=== PATIENT | female | born 1960 | race Caucasian/White ===

== ENCOUNTER 2019-11-24 14:48 | Outpatient (CLI) | payer OTHER, SELFPAY ==
--- NOTE | ~2019-11-24 | MM_ITS ---
EXAMINATION: MM screening [facility] BI w gabbi HISTORY: Screening mammogram TECHNIQUE: Craniocaudal and mediolateral oblique 3-D tomosynthesis images were obtained and synthetic 2-D images were generated. CAD analysis was submitted and interpreted. COMPARISON: 10/24/2018, 10/16/2017, 10/09/2016 BREAST PARENCHYMAL COMPOSITION: There are scattered areas of fibroglandular density. FINDINGS: Scattered benign-appearing calcifications are present. There is no evidence of suspicious m ass, calcification, or architectural distortion to suggest malignancy in either breast. There has bee n no suspicious interval change. IMPRESSION: 1. No mammographic evidence of malignancy. 2. Recommend routine screening mammography in one year. BI-RADS Category 2: Benign finding(s). Reviewed, dictated and finalized at location A.
== END 2019-11-24 14:49 | disposition home or self-care (01) ==
LOC: ANHIMG 14:52
PROVIDERS: PCP Family Medicine Adolescent Medicine; Visit Provider Nurse Practitioner Family
DX: Z12.31 Encounter for screening mammogram for malignant neoplasm of breast (principal)
CPT/HCPCS: 77063; 77067

== ENCOUNTER 2020-11-29 14:29 | Outpatient (CLI) | payer OTHER, SELFPAY ==
--- NOTE | ~2020-11-29 | MM_ITS ---
EXAMINATION: MM screening lamin BI w gabbi HISTORY: Screening mammogram TECHNIQUE: Craniocaudal and mediolateral oblique 3-D tomosynthesis images were obtained and synthetic 2-D images were generated. CAD analysis was submitted and interpreted. COMPARISON: 11/24/2019, 10/24/2018, 10/17/2007 bilateral digital screening mammogram examinations BREAST PARENCHYMAL COMPOSITION: There are scattered areas of fibroglandular density. FINDINGS: Occasional benign calcifications. There is no evidence of suspicious mass, calcification, o r architectural distortion to suggest malignancy in either breast. There has been no suspicious inter devon change. IMPRESSION: 1. No mammographic evidence of malignancy. 2. Recommend routine screening mammography in one year. BI-RADS Category 1: Negative Reviewed, dictated and finalized at location A.
== END 2020-11-29 14:30 | disposition home or self-care (01) ==
LOC: ANHIMG 14:33
PROVIDERS: PCP Family Medicine Adolescent Medicine; Visit Provider Obstetrics & Gynecology
DX: Z12.31 Encounter for screening mammogram for malignant neoplasm of breast (principal)
CPT/HCPCS: 77063; 77067

== ENCOUNTER 2021-06-13 10:39 | Emergency (ER) | payer OTHER, SELFPAY ==
[2021-06-13 10:48] VITALS: BP 135/72; PULSE 86; RESP 16; TEMP 37.2; O2SAT 100
--- NOTE | 2021-06-13 11:10 | ED.ABDPAIN ---
HPI - Abdominal Pain General Chief Complaint: Abdominal Pain Stated Complaint: Lower abdominal Pain Time Seen by Provider: 06/13/21 11:11 Source: patient and RN notes reviewed Mode of arrival: ambulatory Limitations: no limitations History of Present Illness HPI narrative: 61-year-old female presents to the [facility] with complaints of left lower abdominal pain for the last 1-1/2 days. Patient states she had a normal bowel movement today. Denies any nausea vomiting or diarrhea. MD elicited complaint: abdominal pain (Left lower) Related Data Home Medications Medication Instructions Recorded Confirmed atorvastatin 10 mg PO DAILY 06/13/21 06/13/21 levothyroxine [Synthroid] 88 mcg PO DAILY 06/13/21 06/13/21 Allergies Allergy/AdvReac Type Severity Reaction Status Date / Time Penicillins Allergy Unknown Nausea and Verified 06/13/21 11:27 Vomiting Sulfa (Sulfonamide Allergy Unknown vomiting Verified 06/13/21 11:27 Antibiotics) sulfamerazine Allergy Unknown Nausea and Verified 06/13/21 11:27 Vomiting sulfanilamide Allergy Unknown Nausea and Verified 06/13/21 11:27 Vomiting Review of Systems Review of Systems: All systems reviewed & are unremarkable except as noted in HPI and below Constitutional: Constitutional: Reports no additional constitutional complaints, Denies chills and Denies fever(s) Eyes: Eyes: Reports no additional eye complaints ENT: Reports system reviewed and no additional complaints, except as documented Cardiovascular: Cardiovascular: Reports no additional cardiovascular complaints and Denies chest pain Respiratory: Respiratory: Reports no additional respiratory complaints, Denies cough and Denies dyspnea Gastrointestinal: Gastrointestinal: Reports abdominal pain (Left lower, suprapubic), Denies constipation, Denies diarrhea, Denies nausea and Denies vomiting Genitourinary: Genitourinary: Reports no additional female genitourinary complaints Musculoskeletal: Musculoskeletal: Reports no additional musculoskeletal complaints Integumentary/Breasts: Skin/Breast: Reports system reviewed and no additional complaints, except as docu Neurologic: Reports system reviewed and no additional complaints, except as documented Psychiatric: Psychiatric: Reports no additional psychiatric complaints Allergic/Immunologic: Allergic/Immunologic: Reports no additional allergic/immunologic complaints [facility] Past Medical History Medical History (Updated 06/13/21 @ 11:29 by Hiral Ribeiro) High cholesterol Thyroid disorder Surgical History Surgical History (Updated 06/13/21 @ 11:19 by Hiral Ribeiro) No significant past surgical history Family History Family History (Updated 02/05/14 @ 07:13 by DOCTOR UNKNOWN) Father Family history of coronary artery disease Mother Acute myocardial infarction Other Hypertension Social History Social History Alcohol intake: current Comments At the time of my signature, I reviewed and agree with the nursing past medical, surgical, social, and family history. There is no relevant family history pertinent to the patient complaint. Exam Const: General: alert and ill appearing acutely (Pain) Nutritional Appearance: well nourished Orientation/consciousness: patient oriented x3 Limitations: no limitations HENMT: Head: normal to inspection Ears: external ears normal, TM's normal bilaterally and EAC's normal Eyes: Conjunctivae: conjunctivae normal Pupils: Equal, round and reactive pupils present Neck: Neck: normal visual inspection, no lymphadenopathy and no meningeal signs Chest: Chest palpation & inspection: normal inspection of the chest Resp: Effort & Inspection: normal respiratory effort and no use of accessory muscles Auscultation: clear to auscultation bilaterally, no crackles, no rales, no rhonchi and no wheezes Cardio: Rate: regular rate Rhythm: regular rhythm GI: GI Palp: Yes Soft to palpation, Yes Tenderness to palpat
== END 2021-06-13 11:20 | disposition short-term general hospital (02) ==
PROVIDERS: PCP Family Medicine Adolescent Medicine
DX: R10.32 Left lower quadrant pain (principal); E78.00 Pure hypercholesterolemia, unspecified; E07.9 Disorder of thyroid, unspecified
CPT/HCPCS: 99212; G0463

== ENCOUNTER 2021-06-13 11:40 | Emergency (ER) | payer OTHER, SELFPAY ==
--- NOTE | ~2021-06-13 | CT_ITS ---
EXAMINATION: CT abdomen pelvis w con EXAM DATE: 06/13/2021 18:42 INDICATION: LLQ abd pain. TECHNIQUE: Spiral CT of the abdomen and pelvis was performed following intravenous injection of 100 m L Omnipaque 350. Axial, coronal and sagittal images of the abdomen and pelvis were reviewed. The do se-length product (DLP) for this examination was 238.20 mGy-cm. The exposure was tailored according to patient size (auto mA exposure control), and iterative reconstruction (ASIR) was used as additiona l dose reduction technique. There is no prior study for comparison. FINDINGS: There is left liver lobe hypodense lesion with probable peripheral nodular enhancement iden tified, likely a hemangioma measuring 2.5 cm. There is a right upper lobe similar appearing lesion me asuring 1 cm. Spleen, pancreas, adrenal glands are unremarkable. Gallbladder is unremarkable. No bi liary obstruction. Portal and splenic veins are patent. Kidneys enhance symmetrically. There is no hydronephrosis. The uterus is retroverted and morphologically normal. Enlarged left ovarian veins, near the adnexa measuring up to 1.4 cm in diameter could indicate pelvic congestion syndrome. The b ladder is distended but otherwise unremarkable. There is no retroperitoneal or pelvic lymphadenopath y. There is mild scattered arteriosclerotic disease. There is moderate sigmoid diverticulosis. There is large amount of inflammation surrounding the desce nding/sigmoid colonic junction, with colonic wall edema. Although findings above are most consistent with acute diverticulitis, rarely inflammatory cancer can have a similar appearance. Therefore recomm end treating patient for acute diverticulitis and then obtaining a 2-4 week followup abdomen pelvis C T. Alternatively, if patient has not had recent colonoscopy, followup colonoscopy could be considered . Normal appendix. The stomach and small bowel are unremarkable. There is expected amount of colonic s tool. No free intraperitoneal gas. The heart is normal in size. There are no pericardial or pleu ral effusions. The lung bases are unremarkable. There are no osteoblastic or osteolytic lesions zeferino ntified. IMPRESSION: 1. Descending/sigmoid colonic wall thickening, edema, adjacent inflammation most likely uncomplicate d diverticulitis. Inflammatory cancer not excludable. 2. Dilated left ovarian vein; possible pelvic congestion syndrome. 3. Two liver lesions consistent with hemangiomata. Reviewed, dictated and finalized at location A. DRY SORTER IMPRESSION: 1. Descending/sigmoid colonic wall thickening, edema, adjacent inflammation mo st likely uncomplicated diverticulitis. Inflammatory cancer not excludable. 2. Dilated left ovarian vein; possible pelvic congestion syndrome. 3. Two liver lesions consistent with hemangiomata.
[2021-06-13 11:56] VITALS: BP 127/69; PULSE 86; RESP 15; TEMP 36.6; O2SAT 100
[2021-06-13 13:32] VITALS: BP 133/81; PULSE 81; RESP 18; TEMP 36.4; O2SAT 99
[2021-06-13 16:20] VITALS: BP 127/79; PULSE 81; RESP 18; TEMP 36.3; O2SAT 100
[2021-06-13 17:57] VITALS: BP 156/77; PULSE 81; RESP 18; O2SAT 100
--- NOTE | 2021-06-13 18:02 | ED.ABDPAIN ---
HPI - Abdominal Pain General Chief Complaint: Abdominal Pain Stated Complaint: abd pain Time Seen by Provider: 06/13/21 17:47 Source: patient Mode of arrival: ambulatory Limitations: no limitations History of Present Illness HPI narrative: This is a 61-year-old female that presents to the emergency department for left lower quadrant abdominal pain. Present over the last couple of days. The pain has been constant in nature. Associated with some loose stools. Denies fever, vomiting, dysuria, hematuria, or hematochezia. Related Data Home Medications Medication Instructions Recorded Confirmed atorvastatin 10 mg PO DAILY 06/13/21 06/13/21 levothyroxine [Synthroid] 88 mcg PO DAILY 06/13/21 06/13/21 Allergies Allergy/AdvReac Type Severity Reaction Status Date / Time Penicillins Allergy Unknown Nausea and Verified 06/13/21 11:56 Vomiting Sulfa (Sulfonamide Allergy Unknown vomiting Verified 06/13/21 11:56 Antibiotics) sulfamerazine Allergy Unknown Nausea and Verified 06/13/21 11:56 Vomiting sulfanilamide Allergy Unknown Nausea and Verified 06/13/21 11:56 Vomiting Review of Systems Review of Systems: CONSTITUTIONAL: Denies fever GASTROINTESTINAL: Reports abdominal pain and diarrhea. Denies nausea, vomiting GENITOURINARY: Denies dysuria or hematuria. All systems reviewed & are unremarkable except as noted in HPI and below PMFSH Past Medical History Medical History (Updated 06/13/21 @ 19:38 by Angie Farris PA-C) High cholesterol Thyroid disorder Surgical History Surgical History (Updated 06/13/21 @ 11:19 by Hiral Ribeiro) No significant past surgical history Family History Family History (Updated 02/05/14 @ 07:13 by DOCTOR UNKNOWN) Father Family history of coronary artery disease Mother Acute myocardial infarction Other Hypertension Social History Social History Alcohol intake: current Exam Narrative: GENERAL: Well-appearing, well-nourished, and in no acute distress. HEAD: Normocephalic, atraumatic. EYES: EOMI. CHEST: Clear to auscultation. No respiratory distress. No wheezes rales or rhonchi HEART: Regular rate and rhythm. No murmur heard. Normal peripheral pulses. ABDOMEN: Soft, nondistended, normal active bowel sounds. Tender to palpation in the left lower quadrant, without guarding. No CVA tenderness EXTREMITIES: Normal range of motion. No edema. SKIN: Warm, dry, no rash. NEURO: No focal deficits. Alert and oriented x3. PSYCH: Normal mood and affect Course Consultations Consultation #1: Spoke with Dr. Vega about patient and work-up who will follow-up in clinic. Date: 06/13/21 Time: 19:00 Vital Signs Vital signs: Vital Signs Temperature 97.8 F 06/13/21 11:56 Pulse Rate 86 06/13/21 11:56 Respiratory Rate 15 06/13/21 11:56 Blood Pressure 127/69 06/13/21 11:56 Pulse Oximetry 100 06/13/21 11:56 Temperature 97.3 F L 06/13/21 16:20 Pulse Rate 82 06/13/21 18:58 Respiratory Rate 18 06/13/21 18:58 Blood Pressure 130/82 06/13/21 18:58 Pulse Oximetry 100 06/13/21 18:58 MDM - Abdominal Pain MDM Narrative Medical decision making narrative: Patient presents emergency department for left lower quadrant abdominal pain present over the last couple of days. She is afebrile and nontoxic-appearing. Vitals are stable. CBC with leukocytosis to 17. Metabolic panel with some evidence of dehydration. Patient hydrated with IV fluids in the ED. Lipase is normal. UA without evidence of infection. CT scan abdomen pelvis shows descending/sigmoid colonic wall thickening, edema, induration inflammation most likely uncomplicated diverticulitis. Inflammatory cancer not excludable, recommend repeat imaging in a couple of weeks to ensure resolution. Patient was updated on case findings. Given option of admission for further management or discharge home with oral antibiotics. Patient prefers to be discharged home. Spoke with Dr. Friend
[2021-06-13 18:16] LABS: Basophils Absolute Auto 0.1 K/mm3 (0.0-0.1); Basophils Percent Auto 0.3 % (0.2-1.2); Eosinophils Percent Auto 0.2 % (0-4.4); Hematocrit 42.7 % (37.0-47.0); Hemoglobin 14.5 g/dL (12.0-15.0); Immature Granulocyte Absolute 0.07 K/mm3 (0.00-0.031); Immature Granulocyte Percent A 0.4 % (0-0.5); Lymphocytes Absolute Auto 2.07 K/mm3 (0.9-3.2); Lymphocytes Percent Auto 12.1 % (18.3-44.2); Mean Corpuscular Hemoglobin 31.6 pg (26-34); Monocytes Absolute Auto 1.4 K/mm3 (0.1-0.6); Monocytes Percent Auto 8.2 % (2.6-8.5); Neutrophils Absolute Auto 13.4 K/mm3 (1.3-6.7); Neutrophils Percent Auto 78.8 % (45.5-73.1); Platelet Count Result 287 k/mm3 (150-375); Red Blood Count 4.59 M/mm3 (4.2-5.4); Red Cell Distribution Width 12.7 % (11.5-14.5)
[2021-06-13] MEDS: MORPHINE SULFATE (*CRX) 2 MG/ML INJ IV PUSH (18:22)
[2021-06-13] MEDS: ONDANSETRON INJ 4 MG/2 ML VIAL IV PUSH (18:22)
[2021-06-13 18:23] LABS: Add Urine Microscopic? YES; Appearance Urine Clear (Clear); Bilirubin Urine Negative (Negative); Blood Urine 1+ (Negative); Color Urine Yellow (Yellow); Glucose Urine UA Negative (Negative); Ketones Urine 1+ mg/dL (Negative); Leukocyte Esterase Ur Negative LEU/UL (Negative); Mucus Urine Rare /lpf; Nitrate Urine Negative (Negative); Protein Urine Negative (Negative); Specific Grav Ur 1.011 (1.001-1.035); Squamous Epithelial Cell Urine Rare /hpf (Few); Urobilinogen Urine Negative mg/dL (<2.0); WBC Urine 0-3 /hpf
[2021-06-13 18:25] LABS: Alanine Aminotransferase 20 U/L (4-35); Albumin Level 4.6 g/dL (3.5-5.1); Alkaline Phosphatase 81 U/L (38-126); Anion Gap 9 mmol/L (8-16); Aspartate Amino Transferase 30 U/L (14-36); Bilirubin,Total 0.7 mg/dL (0.2-1.3); Blood Urea Nitrogen 5 mg/dL (7-17); Calcium 9.2 mg/dL (8.4-10.2); Carbon Dioxide 24 mmol/L (22-30); Chloride 97 mmol/L (98-107); Estimated CRCL calculation 65 ml/min; Estimated Glomerular Filt Rate > 60; Glucose 110 mg/dL (65-110); Lipase 20 U/L (23-300); Potassium 3.9 mmol/L (3.4-5.0); Sodium 130 mmol/L (137-145)
[2021-06-13] MEDS: SODIUM CHLORIDE 0.9% IV 1,000 ML 999 ML IV CONT (18:56)
[2021-06-13 18:58] VITALS: BP 130/82; PULSE 82; RESP 18; O2SAT 100
--- NOTE | 2021-06-13 19:26 | PC.NURSE ---
assumed care of pt
[2021-06-13] MEDS: CIPROFLOXACIN 500 MG TAB PO (19:30)
[2021-06-13] MEDS: metroNIDAZOLE 250 MG TABLET 500 MG PO (19:31)
[2021-06-13 20:00] VITALS: BP 156/79; PULSE 73; RESP 18; O2SAT 100
== END 2021-06-13 20:00 | disposition home or self-care (01) ==
PROVIDERS: Physician Assistant; Emergency Provider Emergency Medicine; PCP Family Medicine Adolescent Medicine
DX: K57.32 Diverticulitis of large intestine without perforation or abscess without bleeding (principal); E78.00 Pure hypercholesterolemia, unspecified; E07.9 Disorder of thyroid, unspecified; K76.9 Liver disease, unspecified
CPT/HCPCS: 36415; 74177; 80053; 81001; 83690; 85025; 96361; 96365; 96375; 99284; A9270; J0131; J2270; J2405; J7030; Q9967

== ENCOUNTER → 2022-02-01 08:34 | Outpatient (CLI) | payer OTHER, SELFPAY ==
--- NOTE | ~2022-02-01 | DEXA_ITS ---
Bone Density Report Name: BANDAR HANSEN Age: 61 Sex: Female Ethnicity: White Date of : 1960 Indication: osteopenia; monitoring treatment; height loss; postmenopausal Referring Provider: Rachell Bowman Study: Bone densitometry was performed. Exam Date: February 01, 2022 Accession number: [id number] Bone Density: Region BMD T-score Z-score Classification AP Spine (L1-L4) 0.881 -1.5 0.2 Osteopenia Femoral Neck (Left) 0.624 -2.0 -0.6 Osteopenia Total Hip (Left) 0.781 -1.3 -0.2 Osteopenia Femoral Neck (Right) 0.646 -1.8 -0.4 Osteopenia Total Hip (Right) 0.768 -1.4 -0.3 Osteopenia Total Hip Mean 0.775 -1.4 -0.3 Osteopenia World Health Organization criteria for BMD impression classify patients as: Normal (T-score at or above -1.0), Osteopenia (T-score between -1.0 and -2.5), or Osteoporosis (T-score at or below -2.5). 10-year Fracture Risk: FRAX not reported because: Treated for osteoporosis Previous Exams: Region Exam Age BMD T-score BMD Change BMD Change Date g/cm2 vs Baseline vs Previous AP Spine(L1-L4) 02/01/2022 61 0.881 -1.5 0.000 0.000 05/16/2019 59 0.881 -1.5 Total Hip(Left) 02/01/2022 61 0.781 -1.3 -0.055* -0.055* 05/16/2019 59 0.835 -0.9 Total Hip(Right) 02/01/2022 61 0.768 -1.4 -0.048* -0.048* 05/16/2019 59 0.816 -1.0 *Denotes significance at 95% confidence level, LSC for AP Spine = 0.022 g/cm2, LSC for Total Hip = 0.027 g/cm2 Clinical Information Provided by Patient: Is being treated for osteoporosis Has used the following medications: Prolia (i.e. denosumab), Vitamin D, Calcium Patient maximum height was 61.75 Menopause Age: 50 Drinks caffeinated beverages Onset of menses at age 12 Number of children 4 Impression: The patient has low bone mass, based on the Left Femoral Neck T-score. The BMD for the Total Hip(Left) decreased, changing by -0.055 since the last DXA exam. The BMD for the Total Hip(Right) decreased, changing by -0.048 since the last DXA exam. Discussion: SIGNIFICANT BONE LOSS OBSERVED. Adherence to therapy (including calcium and vitamin D intake) should be assessed. If compliance is not a factor, review management and exclusion of secondary causes of bone loss. It is important to ask patients whether they are taking their medications and to encourage continued and appropriate compliance with their osteoporosis therapies to reduce fracture risk. It is also
--- NOTE | ~2022-02-01 | MM_ITS ---
EXAMINATION: MM screening lamin BI w gabbi HISTORY: Screening TECHNIQUE: Craniocaudal and mediolateral oblique 3-D tomosynthesis images were obtained and synthetic 2-D images were generated. CAD analysis was submitted and interpreted. COMPARISON: Comparison to multiple prior studies sequentially, with oldest reviewed study dated 09/26. BREAST PARENCHYMAL COMPOSITION: There are scattered areas of fibroglandular density. FINDINGS: There is no evidence of suspicious mass, calcification, or architectural distortion to sugg est malignancy in either breast. There has been no suspicious interval change. IMPRESSION: 1. No mammographic evidence of malignancy. 2. Recommend routine screening mammography in one year. BI-RADS Category 1: Negative Reviewed, dictated and finalized at location A.
== END ==
PROVIDERS: PCP Family Medicine Adolescent Medicine; Visit Provider Obstetrics & Gynecology
DX: Z12.31 Encounter for screening mammogram for malignant neoplasm of breast (principal); M81.0 Age-related osteoporosis without current pathological fracture; M85.88 Other specified disorders of bone density and structure, other site; M85.852 Other specified disorders of bone density and structure, left thigh; M85.851 Other specified disorders of bone density and structure, right thigh
CPT/HCPCS: 77063; 77067; 77080

== ENCOUNTER 2022-04-22 22:31 | Emergency (ER) | payer OTHER, SELFPAY ==
--- NOTE | ~2022-04-22 | CT_ITS ---
EXAMINATION: CT abdomen pelvis w con INDICATION: Lower abdominal pain TECHNIQUE: Computed tomographic images of the abdomen and pelvis were obtained after the administrati on of 100 cc of Omnipaque 350 intravenous contrast. The dose-length product (DLP) was 318.08 mGy-cm. Automated exposure control and iterative reconstruction technique were employed. COMPARISON: 06/13/2021 FINDINGS: There is a stable 4 mm nodule of the left lower lobe. The heart size is normal. There is a 2.1 cm hemangioma of the left hepatic lobe. A stable subcapsular hemangioma is also noted in the righ t hepatic lobe. The spleen, pancreas, gallbladder, and adrenal glands are normal. The kidneys are unr emarkable. No pathologically enlarged abdominal or pelvic lymph nodes are identified. There is no jeniffer e intraperitoneal gas or evidence of bowel obstruction. There is diverticulosis of the colon. There i s wall thickening of the sigmoid colon with adjacent edematous stranding of the perisigmoid fat. A sm all volume of ascites is present in the pelvis. No rim-enhancing fluid collection is identified. Ther e is mild lumbar spondylosis. A fat-containing umbilical hernia is noted. IMPRESSION: 1. Acute, uncomplicated sigmoid diverticulitis. Reviewed, dictated and finalized at location A. [facility]
[2022-04-22 22:32] VITALS: BP 140/69; PULSE 83; RESP 20; TEMP 36.4; O2SAT 100
[2022-04-22 22:50] LABS: Basophils Percent Auto 0.3 % (0.2-1.2); Eosinophils Absolute Auto 0.2 K/mm3 (0-0.3); Eosinophils Percent Auto 1.3 % (0-4.4); Hemoglobin 13.9 g/dL (12.0-15.0); Immature Granulocyte Absolute 0.04 K/mm3 (0.00-0.031); Immature Granulocyte Percent A 0.4 % (0-0.5); Lymphocytes Absolute Auto 2.09 K/mm3 (0.9-3.2); Lymphocytes Percent Auto 18.5 % (18.3-44.2); Mean Corpuscular HGB Conc 33.9 g/dl (32-36); Mean Corpuscular Hemoglobin 29.4 pg (26-34); Mean Corpuscular Volume 86.9 fl (80-100); Mean Platelet Volume 8.8 fl (7.4-10.4); Monocytes Absolute Auto 0.9 K/mm3 (0.1-0.6); Monocytes Percent Auto 8.2 % (2.6-8.5); Neutrophils Absolute Auto 8.1 K/mm3 (1.3-6.7); Neutrophils Percent Auto 71.3 % (45.5-73.1); Platelet Count Result 355 k/mm3 (150-375); Red Blood Count 4.72 M/mm3 (4.2-5.4); Red Cell Distribution Width 13.2 % (11.5-14.5); White Blood Count 11.3 K/mm3 (4.5-10.0)
[2022-04-22 22:51] LABS: Appearance Urine Clear (Clear); Bilirubin Urine Negative (Negative); Blood Urine Trace-intact (Negative); Color Urine Yellow (Yellow); Glucose Urine UA Negative (Negative); Ketones Urine 1+ mg/dL (Negative); Leukocyte Esterase Ur Trace LEU/UL (Negative); Nitrate Urine Negative (Negative); Protein Urine Negative (Negative); Urobilinogen Urine 0.2 mg/dL (<2.0)
[2022-04-22 22:59] LABS: RBC Urine 0-2 /hpf (0-2); WBC Urine 0-3 /hpf
[2022-04-22 23:01] LABS: Alanine Aminotransferase 24 U/L (6-35); Albumin Level 4.6 g/dL (3.5-5.1); Alkaline Phosphatase 81 U/L (38-126); Anion Gap 11 mmol/L (8-16); Aspartate Amino Transferase 47 U/L (14-36); Bilirubin,Total 0.7 mg/dL (0.2-1.3); Blood Urea Nitrogen 4 mg/dL (7-17); Carbon Dioxide 24 mmol/L (22-30); Chloride 98 mmol/L (98-107); Estimated CRCL calculation 58 ml/min; Estimated Glomerular Filt Rate > 60; Glucose 114 mg/dL (65-110); Lipase 38 U/L (23-300); Potassium 3.5 mmol/L (3.4-5.0); Sodium 133 mmol/L (137-145)
[2022-04-22 23:08] LABS: Add Urine Microscopic? YES
--- NOTE | 2022-04-22 23:34 | ED.ABDPAIN ---
HPI - Abdominal Pain General Chief Complaint: Abdominal Pain Stated Complaint: abdominal pain Time Seen by Provider: 04/22/22 22:50 History of Present Illness HPI narrative: 62-year-old female history of diverticulitis presenting to the emergency department for evaluation of generalized lower abdominal pain. Patient states that she has had intermittent diffuse abdominal pain and cramping all week. Patient denies any current nausea or vomiting. Patient denies any pain with urination. Patient did have an episode of diverticulitis in June and states this does feel similar. Over the course of the day patient states her pain has worsened. With her diverticulitis she had more intense left lower quadrant pain the pain today is more suprapubic. Patient has past medical history of hypothyroidism, hypercholesterolemia, diverticular disease, irritable bowel syndrome Related Data Home Medications Medication Instructions Recorded Confirmed metronidazole 500 mg tablet 500 mg PO Q8H 02/21/22 04/11/22 Allergies Allergy/AdvReac Type Severity Reaction Status Date / Time Penicillins Allergy Unknown Nausea and Verified 04/11/22 12:58 Vomiting Sulfa (Sulfonamide Allergy Unknown vomiting Verified 04/11/22 12:58 Antibiotics) sulfamerazine Allergy Unknown Nausea and Verified 04/11/22 12:58 Vomiting sulfanilamide Allergy Unknown Nausea and Verified 04/11/22 12:58 Vomiting Review of Systems Review of Systems: CONSTITUTIONAL: Denies fever, chills, or sweats. EYES: Denies visual changes, redness, or discharge. ENT: Denies rhinorrhea, congestion, sore throat, or otalgia. CARDIOVASCULAR: Denies chest pain, palpitations, or edema. RESPIRATORY: Denies cough or dyspnea. GASTROINTESTINAL: See HPI GENITOURINARY: Denies dysuria or hematuria. SKIN: Denies rash or itching. MUSCULOSKELETAL: Denies back pain, joint pain, or myalgia. NEUROLOGIC: Denies headache, numbness, or weakness. [facility] Past Medical History Medical History (Updated 04/23/22 @ 02:57 by Hesham Aragon MD) Abnormal digestive system diagnostic imaging Bilateral lower abdominal pain Diverticular disease Diverticulitis large intestine w/o perforation or abscess w/o bleeding Elevated blood-pressure reading without diagnosis of hypertension Fecal incontinence Hematochezia High cholesterol Hypercholesterolemia Hypothyroidism Mixed irritable bowel syndrome Osteoporosis Thyroid disorder Surgical History Surgical History No significant past surgical history Family History Family History Father Family history of coronary artery disease Mother Acute myocardial infarction Sibling Acute myocardial infarction Other Hypertension Social History Social History Smoking status: Former smoker Alcohol intake: current Exam Narrative: APPEARANCE: Well appearing, no pain, no distress, well-nourished. HEAD: normocephalic, atraumatic. EYES: PERRLA/EOMI, conjunctivae clear. NOSE: Normal no drainage NECK: Supple. No adenopathy, no masses. RESPIRATORY: Airway patent, respirations nonlabored. Clear to auscultation bilaterally, no rales, rhonchi, wheezing. CARDIOVASCULAR: Regular rate and rhythm without murmurs rubs or gallops. ABDOMINAL: Soft, nondistended, normal bowel sounds, suprapubic tenderness to palpation, no CVA tenderness to palpation MUSCULOSKELETAL: Moves all extremities. Strength/ROM intact, No edema, No calf tenderness. NEURO: Alert. Cranial nerves II through XII intact. Grossly intact SKIN: Warm, dry. Normal Color Course Course Emergency Course: Patient is afebrile with a minor leukocytosis of 11.1. Patient's hemoglobin is stable. Patient's electrolytes are within normal limits and UA shows no evidence of urinary tract infection. CT showed evidence of AN uncomplicated d
[2022-04-22 23:43] VITALS: BP 131/70; PULSE 67; RESP 20; O2SAT 100
[2022-04-22] MEDS: HYDROmorphone HCL INJ (*CRX) 1 MG/ML SYR 0.5 MG IV PUSH (23:43)
[2022-04-22] MEDS: SODIUM CHLORIDE 0.9% IV 1,000 ML 999 ML IV CONT (23:44)
[2022-04-23] MEDS: metroNIDAZOLE 250 MG TABLET 500 MG PO (03:06)
[2022-04-23] MEDS: CIPROFLOXACIN 500 MG TAB PO (03:06)
== END 2022-04-23 03:23 | disposition home or self-care (01) ==
PROVIDERS: Emergency Provider Emergency Medicine; PCP Family Medicine Adolescent Medicine
DX: K57.32 Diverticulitis of large intestine without perforation or abscess without bleeding (principal); E03.9 Hypothyroidism, unspecified; Z87.891 Personal history of nicotine dependence
CPT/HCPCS: 36415; 74177; 80053; 81001; 83690; 85025; 96361; 96374; 99284; A9270; J1170; J7030; Q9967

== ENCOUNTER 2022-06-09 02:10 | Day surgery (SDC) | payer OTHER, SELFPAY ==
[2022-05-29 12:57] VITALS: BMI 23.6
[2022-06-09 11:16] VITALS: BP 125/81; PULSE 95; RESP 18; TEMP 36.2; O2SAT 100
[2022-06-09] MEDS: LACTATED RINGERS 1,000 ML 150 ML IV CONT (11:22)
--- NOTE | 2022-06-09 11:24 | PM.HPGS ---
History of Present Illness History of Present Illness Consent: Risks, benefits, and alternatives have been discussed and questions answered. Patient agrees to proceed with procedure. Chief complaint: GERD Melena diverticulosis abnor CT & fecal incont Narrative: Tala Herron is a 62 year old female Presents for colonoscopy and EGD. Patient reports vague low abdominal discomfort. Initially in June 2021. CT scan at that time confirmed diverticulitis. Patient had recurrent bilateral low abdominal discomfort last month. She improved with antibiotics she presents today presumably after follow-up for recent diverticulitis. Patient notices occasional anal leakage with long walks. Sometimes she will have intermittent bright red blood per rectum associated with anal irritation with walking. She states she is currently getting a high-fiber diet. She occasionally will take Benefiber supplementation. She did recently have vague epigastric discomfort she did not take medications in this abated after several weeks. Not specifically related to any oral intake. Family history is noncontributory. Patient presents today for further evaluation. Symptoms have improved dramatically. Previous colonoscopy by Dr. Griffin in 2016 revealed diverticulosis and hemorrhoids. Review of Systems Review of Systems: Review of systems noncontributory. [facility] Past Medical History Medical History (Updated 06/09/22 @ 11:26 by Carlos Schuster MD) Abnormal digestive system diagnostic imaging Bilateral lower abdominal pain Diverticular disease Diverticulitis large intestine w/o perforation or abscess w/o bleeding Elevated blood-pressure reading without diagnosis of hypertension Fecal incontinence Hematochezia High cholesterol Hypercholesterolemia Hypothyroidism Mixed irritable bowel syndrome Osteoporosis Thyroid disorder Surgical History Surgical History No significant past surgical history Family History Family History Father Family history of coronary artery disease Mother Acute myocardial infarction Sibling Acute myocardial infarction Other Hypertension Social History Social History Smoking status: Never smoker Alcohol intake: current Alcohol use details: on occasion Substance use: never Substance use type: does not use Living arrangements: with family Spiritual care concerns: No Meds Home Medications and Allergies Home Medications Medication Instructions Recorded Confirmed Type denosumab 60 mg/mL subcutaneous 60 mg subcut [id number] #1 mL 08/22/21 05/29/22 Rx syringe (Prolia) atorvastatin 10 mg tablet See Rx Instructions .Route 02/13/22 05/29/22 Rx .COMPLEX #90 tabs levothyroxine 88 mcg tablet 88 mcg PO DAILY #90 tabs 02/13/22 05/29/22 Rx (Synthroid) hydrocortisone acetate 25 mg 25 mg RECTAL BID PRN hemorrhoids 04/11/22 05/29/22 Rx rectal suppository (Anusol-HC) 10 days #20 ea hydrocodone 5 mg-acetaminophen 325 1 tablet PO Q8H PRN pain #14 tabs 04/23/22 05/29/22 Rx mg tablet Allergies Allergy/AdvReac Type Severity Reaction Status Date / Time Penicillins Allergy Unknown Nausea and Verified 06/09/22 11:16 Vomiting Sulfa (Sulfonamide Allergy Unknown vomiting Verified 06/09/22 11:16 Antibiotics) sulfamerazine Allergy Unknown Nausea and Verified 06/09/22 11:16 Vomiting sulfanilamide Allergy Unknown Nausea and Verified 06/09/22 11:16 Vomiting Vital Signs Vital Signs - 24 hr 06/09/22 11:16 Temperature 97.2 F L Pulse Rate 95 Respiratory Rate 18 Blood Pressure 125/81 Pulse Oximetry 100 Oxygen Delivery Room Air Exam Narrative: Physical exam reveals patient to be alert. Vital signs stable. HEENT exam is unremarkable. Patient is anicteric. Lungs are clear to auscultation and p
--- NOTE | 2022-06-09 12:02 | WPDANESEPPF ---
Anes - Initial Pre Proc Eval Procedure: Operation Date: 06/09/22 12:30 Proposed Procedures p Esophagogastroduodenoscopy & Colonoscopy - Carlos Schuster MD Date/Time: 06/09/22 12:02 Surgeon: Carlos Schuster MD Pre Op Diagnosis: GERD Melena diverticulosis abnor CT & fecal incont Patient Data Age: 62 Gender: F Height: 1.52 m Weight: 55 kg Last Vital Signs Temp 36.2 C L 06/09/22 11:16 Pulse 95 06/09/22 11:16 Resp 18 06/09/22 11:16 BP 125/81 06/09/22 11:16 Pulse Ox 100 06/09/22 11:16 O2 Del Method Room Air 06/09/22 11:16 Allergies Allergy/AdvReac Type Severity Reaction Status Date / Time Penicillins Allergy Unknown Nausea and Verified 06/09/22 11:16 Vomiting Sulfa (Sulfonamide Allergy Unknown vomiting Verified 06/09/22 11:16 Antibiotics) sulfamerazine Allergy Unknown Nausea and Verified 06/09/22 11:16 Vomiting sulfanilamide Allergy Unknown Nausea and Verified 06/09/22 11:16 Vomiting Home Medications Medication Instructions Recorded Confirmed Type denosumab 60 mg/mL subcutaneous 60 mg subcut [id number] #1 mL 08/22/21 05/29/22 Rx syringe (Prolia) atorvastatin 10 mg tablet See Rx Instructions .Route 02/13/22 05/29/22 Rx .COMPLEX #90 tabs levothyroxine 88 mcg tablet 88 mcg PO DAILY #90 tabs 02/13/22 05/29/22 Rx (Synthroid) hydrocortisone acetate 25 mg 25 mg RECTAL BID PRN hemorrhoids 04/11/22 05/29/22 Rx rectal suppository (Anusol-HC) 10 days #20 ea hydrocodone 5 mg-acetaminophen 325 1 tablet PO Q8H PRN pain #14 tabs 04/23/22 05/29/22 Rx mg tablet Patient hx anesthesia problems: none Family hx anesthesia problems: none Results Review: All pre-operative results and documents have been reviewed as part of the pre-operative evaluation. [facility] Past Medical History Medical History (Updated 06/09/22 @ 11:26 by Carlos Schuster MD) Abnormal digestive system diagnostic imaging Bilateral lower abdominal pain Diverticular disease Diverticulitis large intestine w/o perforation or abscess w/o bleeding Elevated blood-pressure reading without diagnosis of hypertension Fecal incontinence Hematochezia High cholesterol Hypercholesterolemia Hypothyroidism Mixed irritable bowel syndrome Osteoporosis Thyroid disorder Surgical History Surgical History No significant past surgical history Family History Family History Father Family history of coronary artery disease Mother Acute myocardial infarction Sibling Acute myocardial infarction Other Hypertension Social History Social History Smoking status: Never smoker Alcohol intake: current Alcohol use details: on occasion Substance use: never Substance use type: does not use Living arrangements: with family Spiritual care concerns: No Anes - Eval Final PreProcedure Day of Procedure 06/09/22 12:02 Patient weight: normal Heart: regular rate and rhythm Lungs: clear to auscultation and normal air movement Airway: Mallampati scale class II Neurological: alert and oriented Last oral intake: >/= 8 hours ASA classification: II Emergent: no Anesthetic plan: proceed Anesthesia type and monitoring: general GIVS and standard monitoring Results Review: All pre-operative results and documents have been reviewed as part of the pre-operative evaluation. Informed Consent: The patient's anesthetic plan and its attendant risks and benefits were discussed with the patient/family/POA. Questions were solicited and answers provided to the satisfaction of the patient/family/POA.
--- NOTE | 2022-06-09 12:52 | SUR.OPER ---
EGD end 1246 COLONOSCOPY START 1254
[2022-06-09 13:09] VITALS: BP 116/55; PULSE 68; RESP 16; O2SAT 100
[2022-06-09 13:19] VITALS: BP 105/61; PULSE 71; RESP 15; O2SAT 100
[2022-06-09 13:29] VITALS: BP 125/50; PULSE 69; RESP 16; O2SAT 100
== END 2022-06-09 13:41 | disposition home or self-care (01) ==
PROVIDERS: PCP Family Medicine Adolescent Medicine; Visit Provider Internal Medicine Gastroenterology
PROC: 0DJ08ZZ Inspection of Upper Intestinal Tract, Via Natural or Artificial Opening Endoscopic (ICD-10-PCS; CPT 43235; principal; 2022-06-09 12:30)
DX: Z09 Encounter for follow-up examination after completed treatment for conditions other than malignant neoplasm (principal); K57.30 Diverticulosis of large intestine without perforation or abscess without bleeding; K64.8 Other hemorrhoids; R10.13 Epigastric pain; K58.2 Mixed irritable bowel syndrome; Z87.19 Personal history of other diseases of the digestive system; E03.9 Hypothyroidism, unspecified; E78.00 Pure hypercholesterolemia, unspecified; M81.0 Age-related osteoporosis without current pathological fracture
CPT/HCPCS: 45378; 43239; 87081; J2704; J7120

== ENCOUNTER 2023-02-26 14:04 | Outpatient (CLI) | payer OTHER, SELFPAY ==
--- NOTE | 2023-02-28 11:35 | WPDHOLTEREM ---
Holter/Event Monitor Holter/Event Monitor Date of procedure: 02/26/23 Holter/Event Procedure: 24 Hr Holter Monitor Indications: Palpitations Conclusion: 1. 24 hour holter monitor on 02/26/23. 2. Predominant rhythm is sinus rhythm. HR range 41-119 bpm; average HR 62 bpm. HR at 41 bpm was at 03:21. 3. There are 88 premature supraventricular complexes and 4 supraventricular couplets. There is 1 episode of supraventricular tachycardia at 133 bpm lasting 6 beats at 19:11. 4. No premature ventricular complexes. No ventricular tachycardia. 5. No sinoatrial or atrioventricular blocks. No significant pauses greater than 2 seconds. 6. No symptoms available for correlation.
== END 2023-02-26 14:05 | disposition home or self-care (01) ==
PROVIDERS: PCP Family Medicine Adolescent Medicine; Visit Provider Nurse Practitioner Family
DX: R00.2 Palpitations (principal)
CPT/HCPCS: 93225; 93226

== ENCOUNTER 2023-05-30 14:49 | Outpatient (CLI) | payer OTHER, SELFPAY ==
--- NOTE | ~2023-05-30 | MM_ITS ---
EXAMINATION: MM screening lamin BI w gabbi HISTORY: Screening mammogram TECHNIQUE: Craniocaudal and mediolateral oblique 3-D tomosynthesis images were obtained and synthetic 2-D images were generated. CAD analysis was submitted and interpreted. COMPARISON: 01/28/2022, 11/29/2020, 11/24/2019 bilateral screening mammogram examinations BREAST PARENCHYMAL COMPOSITION: There are scattered areas of fibroglandular density. FINDINGS: There is no evidence of suspicious mass, calcification, or architectural distortion to sugg est malignancy in either breast. There has been no suspicious interval change. IMPRESSION: 1. No mammographic evidence of malignancy. 2. Recommend routine screening mammography in one year. BI-RADS Category 1: Negative Reviewed, dictated and finalized at location A. AL MANAGEMENT REPRESENTATIVE
== END 2023-05-30 14:50 | disposition home or self-care (01) ==
LOC: ANHIMG 14:50
PROVIDERS: PCP Family Medicine Adolescent Medicine; Visit Provider Obstetrics & Gynecology
DX: Z12.31 Encounter for screening mammogram for malignant neoplasm of breast (principal)
CPT/HCPCS: 77063; 77067

== ENCOUNTER 2023-08-17 09:05 | Outpatient (CLI) | payer OTHER, SELFPAY ==
--- NOTE | 2023-08-17 | EST_ITS ---
Patient Info Name: Tala Herron Age: 63 years : 1960 Gender: Female Ht: 60 in Wt: 125 lbs BSA: 1.56 m2 HR: 64 bpm BP: 129 / 90 mmHg Heart Rhythm: Sinus Rhythm Exam Date: 08/17/2023 11:04 AM Exam Location: Echo Lab Patient Status: Outpatient Admit Date: 08/17/2023 Staff Ordering Physician: RAFA, RAFA Attending Provider: RAFA, RAFA Exercise Technologist: Annie Crews CT Exercise Physician: Mikal Pappas DO Exam Type: CA stress test treadmill w NM Study Info Indications R07.89 - Other chest pain A nuclear stress test was performed. Summary 1. 1. Negative Dylan exercise stress test for ischemic ST changes by ECG criteria. 2. 2. Reduced functional capacity, achieving 7 METs of workload. 3. 3. Appropriate HR response to exercise. 4. 4. Appropriate HR recovery at 1 minute post exercise. 5. 5. Nuclear scan to follow and will be reported separately. Please correlate with it. 6. 6. Patient informed of the above results. Protocol: Dylan Stress ECG Details Stage: REST Duration (min): 0 min : 58 sec Speed (mph): 0.0 Grade (%): 0 HR (bpm): 64 SBP (mmHg): 129 DBP (mmHg): 90 METS: --- Stage: REST Duration (min): 6 min : 38 sec Speed (mph): 0.0 Grade (%): 0 HR (bpm): 67 SBP (mmHg): 129 DBP (mmHg): 90 METS: --- Stage: STAGE 1 Duration (min): 1 min : 0 sec Speed (mph): 1.7 Grade (%): 10 HR (bpm): 96 SBP (mmHg): 129 DBP (mmHg): 90 METS: --- Stage: STAGE 1 Duration (min): 2 min : 0 sec Speed (mph): 1.7 Grade (%): 10 HR (bpm): 101 SBP (mmHg): 129 DBP (mmHg): 90 METS: --- Stage: STAGE 1 Duration (min): 3 min : 0 sec Speed (mph): 1.7 Grade (%): 10 HR (bpm): 104 SBP (mmHg): 203 DBP (mmHg): 70 METS: --- Stage: STAGE 2 Duration (min): 1 min : 0 sec Speed (mph): 2.5 Grade (%): 12 HR (bpm): 122 SBP (mmHg): 203 DBP (mmHg): 70 METS: --- Stage: STAGE 2 Duration (min): 2 min : 0 sec Speed (mph): 2.5 Grade (%): 12 HR (bpm): 132 SBP (mmHg): 177 DBP (mmHg): 74 METS: --- Stage: STAGE 2 Duration (min): 3 min : 0 sec Speed (mph): 2.5 Grade (%): 12 HR (bpm): 131 SBP (mmHg): 177 DBP (mmHg): 74 METS: --- Stage: RECOVERY Duration (min): 0 min : 57 sec Speed (mph): 0.0 Grade (%): 0 HR (bpm): 99 SBP (mmHg): 191 DBP (mmHg): 73 METS: --- Rest HR: 67 bpm Peak HR: 135 bpm Rest Sys BP: 129 mmHg Peak Sys BP: 203 mmHg Max Pred HR: 155 bpm % Max Pred HR: 87 % Target HR: 132 bpm Max RPP: 27,405 bpm*mmHg Demarco Score: -2 Termination Reason: Reached target heart rate or workload Cardiac Symptoms: Shortness of breath Max ST Seg Deviation: -2 mm Total Time: 6 min : 0 sec Rest Jones BP: 90 mmHg Peak Jones BP: 70 mmHg Angina Score: None Total METS: 7.1 Resting ECG Sinus rhythm. Stress ECG No ST changes. Arrhythmias None. Report Signatures
--- NOTE | 2023-08-17 | ECHO_ITS ---
Patient Info Name: Tala Herron Age: 63 years : 1960 Gender: Female Ht: 61 in Wt: 125 lbs BSA: 1.57 m2 HR: 65 bpm BP: 139 / 86 mmHg Technical Quality: Fair Exam Date: 08/17/2023 9:31 AM Exam Location: Echo Lab Patient Status: Outpatient Admit Date: 08/17/2023 Staff Ordering Physician: RAFA, RAFA Nurse Educator: Karo Prajapati RDCS Attending Provider: RAFA, RAFA Exam Type: CA echo doppler color flow Study Info Indications R07.9 - Chest pain, unspecified Complete two-dimensional, color flow and Doppler transthoracic echocardiogram is performed. Summary 1. Complete two-dimensional, color flow and Doppler transthoracic echocardiogram is performed. 2. Left ventricular chamber dimension is normal. 3. Left ventricular systolic function is normal, estimated at 65-70%. 4. The left ventricular diastolic function is grade II diastolic dysfunction. 5. E/e' 7 is not elevated. 6. Left atrial chamber dimension is mildly enlarged. 7. Right atrial chamber dimension is mildly enlarged. 8. There is mild to moderate tricuspid valve regurgitation. 9. No pulmonary hypertension, estimated pulmonary arterial systolic pressure is 29 mmHg. Left Ventricle E/e' 7 is not elevated. Left ventricular chamber dimension is normal. Left ventricular systolic function is normal, estimated at 65-70%. The left ventricular diastolic function is grade II diastolic dysfunction. Right Ventricle Right ventricular systolic function is normal and with normal TAPSE 2.4 cm. Right ventricular chamber dimension is normal. Left Atria Left atrial chamber dimension is mildly enlarged. Right Atria Right atrial chamber dimension is mildly enlarged. Aortic Valve The aortic valve is trileaflet. There is no aortic valve stenosis. There is no aortic valve regurgitation. Pulmonic Valve There is no pulmonic regurgitation. Mitral Valve There is no mitral valve stenosis. There is no mitral valve regurgitation. Tricuspid Valve There is mild to moderate tricuspid valve regurgitation. No pulmonary hypertension, estimated pulmonary arterial systolic pressure is 29 mmHg. Pericardium/Pleural There is no pericardial effusion. Inferior Vena Cava Normal inferior vena cava with >50% collapse upon inspiration consistent with normal right atrial pressure, 5 mmHg. Aorta The aortic root size at the sinus of Valsalva is normal. Left Ventricular Outflow Tract Name Value Normal LVOT 2D LVOT Diameter 2.0 cm LVOT Doppler LVOT Peak Gradient 4 mmHg LVOT Mean Gradient 2 mmHg LVOT VTI 22 cm LVOT VTI/AV VTI Ratio 0.9 LVOT Stroke Volume 68 ml LVOT CO 13.0 l/min LVOT CI 8.3 l/min/m2 Pulmonic Valve Name Value Normal PV Doppler PV Peak Gradient 2 mmHg Mitr
--- NOTE | ~2023-08-17 | NM_ITS ---
EXAMINATION: NM marc stress w perfusion DATE: 08/17/2023 12:06 INDICATION: Chest pain TECHNIQUE: Rest images were obtained following intravenous administration of 9.2 mCi Tc99m tetrofosmi n (Myoview). The patient was infused intravenously with Lexiscan (Regadenoson). Then, 29.0 mCi Tc99m tetrofosmin (Myoview) was administered intravenously, and stress images were obtained. Data was recon structed into short axis and horizontal and vertical long axis SPECT images. Gated SPECT images were also obtained. COMPARISON: None. FINDINGS: There is no definite reversible or fixed perfusion abnormality to suggest ischemia or infar ction. There is normal left ventricular chamber size, wall motion and ejection fraction. Left ventr icular ejection fraction measures >70%. IMPRESSION: 1. Normal myocardial perfusion at rest and during stress. 2. Left ventricular ejection fraction measuring >70%. Reviewed, dictated and finalized at location A. HEMISTRY TECHNOLOGIST
== END 2023-08-17 09:06 | disposition home or self-care (01) ==
LOC: ANHCARD 09:06
PROVIDERS: PCP Family Medicine Adolescent Medicine
DX: R07.9 Chest pain, unspecified (principal)
CPT/HCPCS: 78452; 93017; 93306; A9502

== ENCOUNTER 2024-10-27 10:14 | Outpatient (CLI) | payer MEDICARE, SELFPAY ==
--- NOTE | ~2024-10-27 | DEXA_ITS ---
Bone Density Report Name: BANDAR HANSEN Age: 64 Sex: Female Ethnicity: White Date of : 1960 Indication: osteopenia; monitoring treatment; height loss; Referring Provider: Rachell Bowman Study: Bone densitometry was performed. Exam Date: October 27, 2024 Accession number: [id number] Bone Density: Region BMD T-score Z-score Classification AP Spine(L1-L4) 0.811 -2.1 -0.3 Osteopenia Femoral Neck (Left) 0.597 -2.3 -0.7 Osteopenia Total Hip (Left) 0.769 -1.4 -0.1 Osteopenia Femoral Neck (Right) 0.645 -1.8 -0.2 Osteopenia Total Hip (Right) 0.770 -1.4 -0.1 Osteopenia Total Hip Mean 0.770 -1.4 -0.1 Osteopenia World Health Organization criteria for BMD impression classify patients as: Normal (T-score at or above -1.0), Osteopenia (T-score between -1.0 and -2.5), or Osteoporosis (T-score at or below -2.5). 10-year Fracture Risk: FRAX not reported because: Treated for osteoporosis Previous Exams: -- Region Exam Age BMD T-score BMD Change BMD Change Date g/cm2 vs Baseline vs Previous -- AP Spine (L1-L4) 10/27/2024 64 0.811 -2.1 -8.0%* -8.0%* 02/01/2022 61 0.881 -1.5 0.0% 0.0% 05/16/2019 59 0.881 -1.5 Total Hip(Left) 10/27/2024 64 0.769 -1.4 -7.9%* -1.4% 02/01/2022 61 0.781 -1.3 -6.6%* -6.6%* 05/16/2019 59 0.835 -0.9 Total Hip(Right) 10/27/2024 64 0.770 -1.4 -5.7%* 0.2% 02/01/2022 61 0.768 -1.4 -5.9%* -5.9%* 05/16/2019 59 0.816 -1.0 -- *Denotes significance at 95% confidence level, LSC for AP Spine = 0.022 g/cm2, LSC for Total Hip = 0.027 g/cm2 Clinical Information Provided by Patient: Is being treated for osteoporosis Has used the following medications: Boniva (i.e. ibandronate), Fosamax (i.e. alendronate), Prolia (i.e. denosumab), Vitamin D, Calcium Patient maximum height was 61.75 Menopause Age: 50 Drinks caffeinated beverages Onset of menses at age 12 Number of children 4 Impression: The patient has low bone mass, based on the Left Femoral Neck T-score. The BMD for the AP Spine (L1-L4) decreased, changing by -8.0% since the last DXA exam. Discussion: SIGNIFICANT BONE LOSS OBSERVED. Adherence to therapy (including calcium and vitamin D intake) should be assessed. If compliance is not a factor, review management and exclusion of secondary causes of bone loss. It is important to ask patients whether they are taking their medications and to encourage continued and appropriate compliance with their osteoporosis therapies to reduce fracture risk. It is also important to review their risk factors and encourage appropriate calcium and vitamin D intakes, exercise, fall prevention and other lifestyle measures. Follow-Up: Consider a repeat BMD and Vertebral Fracture Assessment (VFA) exam in 2 years or sooner if medically necessary, to reassess this patient's status. Reported by: FOREIGN on 10/29/2024 8:57:00 AM. Reviewed, dictated and finalized at location A.
== END 2024-10-27 10:15 | disposition home or self-care (01) ==
LOC: MICIMG 10:15
PROVIDERS: PCP Family Medicine Adolescent Medicine; Visit Provider Obstetrics & Gynecology
DX: M81.0 Age-related osteoporosis without current pathological fracture (principal); M85.88 Other specified disorders of bone density and structure, other site; M85.852 Other specified disorders of bone density and structure, left thigh; M85.851 Other specified disorders of bone density and structure, right thigh
CPT/HCPCS: 77080